=== PATIENT | male | born 1935 | race Caucasian/White ===

== ENCOUNTER 2020-01-13 07:42 | Day surgery (SDC) | payer MEDICARE ==
[2020-01-13] VITALS (7 sets, daily range): BP systolic 100–121; BP diastolic 50–67
[~2020-01-13] VITALS: Ht 190.5 cm; Wt 97.1 kg
[2020-01-13] MEDS ORDERED: normal saline 1000ml 1,000 ML IV SCH (08:00)
[2020-01-13] MEDS ORDERED: MULT-1085 PO (08:02)
[2020-01-13] MEDS ORDERED: PREG300C19 PO (08:02)
[2020-01-13] MEDS ORDERED: IBUP-860 PO (08:02)
[2020-01-13] MEDS ORDERED: vancomycin/NS 1 GM ADD-VANTAGE 250 ML IV ONE (08:10)
[2020-01-13] MEDS ORDERED: ceFAZolin 2gm in dextrose, iso 50 ML IV ONE (08:10)
[2020-01-13 08:33] LABS: BASOPHILS % (AUTO) 0.7 % (0-1); EOSINOPHILS % (AUTO) 0.5 % (0-6); HEMOGLOBIN 14.2 g/dl (14.0-17.9); LYMPHOCYTES # (AUTO) 0.9 X10'3 (1.1-4.8); LYMPHOCYTES % (AUTO) 29.1 % (21-51); MEAN CORPUSCULAR HEMOGLOBIN 34.8 PG (27.0-31.0); MEAN CORPUSCULAR HGB CONC 33.9 g/dL (33.0-36.5); MEAN CORPUSCULAR VOLUME 102.5 FL (78-98); MEAN PLATELET VOLUME 8.5 FL (7.4-10.4); MONOCYTES # (AUTO) 0.4 X10'3 (0-0.9); MONOCYTES % (AUTO) 13.9 % (2-12); NEUTROPHILS # (AUTO) 1.7 X10'3 (1.8-7.7); NEUTROPHILS % (AUTO) 55.8 % (42-75); PLATELET COUNT 138 X10'3 (140-440); RED BLOOD COUNT 4.09 X10'6 (4.70-6.10); WHITE BLOOD COUNT 3.1 X10'3 (4.5-11.0)
[2020-01-13 08:40] LABS: ALBUMIN 3.7 G/DL (3.4-5.0); ANION GAP 8 (8-16); BLOOD UREA NITROGEN 16 MG/DL (7-18); BUN/CREATININE RATIO 21.1 (5.4-32.0); CALCIUM 8.6 MG/DL (8.5-10.1); CHLORIDE 105 MMOL/L (99-107); CREATININE 0.76 MG/DL (0.60-1.10); GLUCOSE 100 MG/DL (70-104); MAGNESIUM 2.2 MG/DL (1.5-2.4); POTASSIUM 4.1 MMOL/L (3.5-5.1); SODIUM 140 MMOL/L (135-145); TOTAL CARBON DIOXIDE 27.3 MMOL/L (24-32); eGFR > 90 ML/MIN
[2020-01-13] MEDS ORDERED: vancomycin 1,000mg inj ONE ×2 (09:11→09:27)
[2020-01-13] MEDS ORDERED: midazolam 2 mg/2 ml injection ONE (09:11)
[2020-01-13] MEDS ORDERED: fentaNYL/PF 50MCG/1 ML 2ML syringe ONE (09:11)
[2020-01-13] MEDS ORDERED: LIDOcaine 1% W/epiNEPHrine 1:100,000 20ml vial ONE (09:11)
[2020-01-13] MEDS ORDERED: HYDROcodone/acetaminophen 10/325mg tab PO PRN (11:05)
[2020-01-13] MEDS ORDERED: HYDROcodone/acetaminophen 5mg/325mg tablet PO PRN (11:05)
== END 2020-01-13 12:45 | disposition home or self-care (01) ==
LOC: SSTAY O 07:42
PROVIDERS: ATTEND Internal Medicine Cardiovascular Disease
DX: Z45.010 Encounter for checking and testing of cardiac pacemaker pulse generator [battery] (principal); I44.2 Atrioventricular block, complete; I48.0 Paroxysmal atrial fibrillation; Z79.899 Other long term (current) drug therapy; Z79.01 Long term (current) use of anticoagulants
CPT/HCPCS: 33228; 36415; 80048; 83735; 85025; 85610; 93005; 93306; 99152; 99153; C1785; J2250; J3010; J3370; J7030; A4620; A6449

== ENCOUNTER 2020-07-06 06:52 | Day surgery (SDC) | payer MEDICARE ==
[2020-06-28 12:44] LABS: BASOPHILS % (AUTO) 0.5 % (0-1); EOSINOPHILS % (AUTO) 0.6 % (0-6); LYMPHOCYTES # (AUTO) 1.2 X10'3 (1.1-4.8); LYMPHOCYTES % (AUTO) 30.2 % (21-51); MEAN CORPUSCULAR HEMOGLOBIN 35.2 PG (27.0-31.0); MEAN CORPUSCULAR HGB CONC 33.9 g/dL (33.0-36.5); MEAN CORPUSCULAR VOLUME 103.9 FL (78-98); MEAN PLATELET VOLUME 9.8 FL (7.4-10.4); MONOCYTES # (AUTO) 0.4 X10'3 (0-0.9); NEUTROPHILS # (AUTO) 2.2 X10'3 (1.8-7.7); NEUTROPHILS % (AUTO) 58.7 % (42-75); PRE OP HEMOGLOBIN 14.2 g/dL (14.0-17.9); PRE OP PLATELET COUNT 140 X10'3 (140-440); RED BLOOD COUNT 4.04 X10'6 (4.70-6.10); RED CELL DISTRIBUTION WIDTH 13.9 % (11.5-14.5)
[2020-06-28 12:58] LABS: ALBUMIN 3.9 G/DL (3.4-5.0); ALBUMIN/GLOBULIN RATIO 0.9 (1.1-1.5); ALKALINE PHOSPHATASE 102 IU/L (46-116); BLOOD UREA NITROGEN 23 MG/DL (7-18); BUN/CREATININE RATIO 27.7 (5.4-32.0); CALCIUM 9.4 MG/DL (8.5-10.1); CHLORIDE 104 MMOL/L (99-107); CREATININE 0.83 MG/DL (0.60-1.10); PRE OP ALT 25 U/L (30-65); PRE OP ANION GAP 12 (8-16); PRE OP AST 24 U/L (10-37); PRE OP BILIRUB, TOTAL 0.8 MG/DL (0.0-1.0); PRE OP GLUCOSE 104 MG/DL (70-104); PRE OP POTASSIUM 4.5 MMOL/L (3.4-5.1); PRE OP SODIUM 140 MMOL/L (135-145); TOTAL CARBON DIOXIDE 24.4 MMOL/L (24-32); TOTAL PROTEIN 8.2 G/DL (6.4-8.2); eGFR 88 ML/MIN
[~2020-07-06] VITALS: Ht 190.5 cm; Wt 98.2 kg
[~2020-07-06 06:52] MED LIST: BUPIVAcaine/PF 2.5mg/ml (0.25%) 10ml vial ONE; IBUP-860 PO; MULT-1085 PO; PREG300C19 PO; ceFAZolin 2gm in dextrose, iso 50 ML IV ONE; famotidine 20mg tablet PO ONE; ringers solution, lacted 1,000 ML IV SCH
[2020-07-06] MEDS ORDERED: LIDOcaine 0.5% (5mg/ml) 50ml vial ONE (07:12)
[2020-07-06] MEDS ORDERED: meperidine/PF 25mg/ml syringe IV PRN ×6 (08:30→09:15)
[2020-07-06] MEDS ORDERED: ringers solution, lacted 1,000 ML IV SCH ×2 (08:30→09:15)
[2020-07-06] MEDS ORDERED: proCHLORperazine 10 MG/2 ml inj IV PRN ×2 (08:30→09:15)
[2020-07-06] MEDS ORDERED: hydrALAZINE 20mg/ml inj. IV PRN ×2 (08:30→09:15)
[2020-07-06] MEDS ORDERED: acetaminophen 1,000mg/100ml IV 100 ML IV PRN ×2 (08:30→09:15)
[2020-07-06] MEDS ORDERED: morphine 4 MG/ML inj SYRINge IV PRN ×2 (08:30→09:15)
[2020-07-06] MEDS ORDERED: ondansetron/PF 4mg/2ml inj IV PRN ×2 (08:30→09:15)
[2020-07-06] MEDS ORDERED: labetalol 20mg/4ml (5mg/ml) syringe IV PRN ×2 (08:30→09:15)
[2020-07-06] MEDS ORDERED: morphine 2 MG/ML inj. syringe IV PRN ×2 (08:30→09:15)
[2020-07-06 08:43] VITALS: BP 118/71
[2020-07-06 08:49] VITALS: BP 118/71
[2020-07-06] MEDS ORDERED: midazolam 2 mg/2 ml injection ONE (09:03)
[2020-07-06] MEDS ORDERED: fentaNYL/PF 50MCG/1 ML 2ML syringe ONE (09:03)
[2020-07-06] MEDS ORDERED: propofol inj 20 ML IV ONE (09:23)
[2020-07-06 09:38] VITALS: BP 120/75
--- NOTE | 2020-07-06 09:38 | NUR ---
Received from OR via [facility] , accompanied by Anesthesiologist REBEKAH and report given by Anesthesiolgist. DENIES PAIN. LEFT WRIST DRESSING IS CDI. VSS. Addendum: 07/06/20 at 0949 by Jose F Pearson RN, RN Amended: Links added.
[2020-07-06 09:48] VITALS: BP 121/78
[2020-07-06 09:58] VITALS: BP 116/75
[2020-07-06 10:08] VITALS: BP 115/70
== END 2020-07-06 10:18 | disposition home or self-care (01) ==
LOC: PAS 06:52
PROVIDERS: ATTEND Orthopaedic Surgery Hand Surgery
DX: G56.02 Carpal tunnel syndrome, left upper limb (principal); M72.0 Palmar fascial fibromatosis [Dupuytren]; M16.12 Unilateral primary osteoarthritis, left hip; G62.9 Polyneuropathy, unspecified; Z20.822 Contact with and (suspected) exposure to COVID-19; Z95.0 Presence of cardiac pacemaker; Z96.642 Presence of left artificial hip joint; Z79.899 Other long term (current) drug therapy; Z98.890 Other specified postprocedural states; Z72.89 Other problems related to lifestyle
CPT/HCPCS: 26121; 36415; 64721; 80053; 82948; 85025; 87635; A6222; J2001; J2250; J2704; J3010; J3490; J7120; A4215; A6449